=== PATIENT | female | born 2005 | race Caucasian/White ===

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

== ENCOUNTER 2024-02-10 13:40 | Emergency (ER) | payer BC, MEDICAID ==
--- NOTE | 2024-02-10 13:45 | ERPHSYRPT ---
- History of Present Illness Time Seen by Provider: 02/10/24 13:45 Historian: patient Exam Limitations: no limitations Physician History: The patient presented with a chief complaint of chest pain that started the previous day, making it difficult for them to breathe. This is not the first occurrence of such symptoms, with similar episodes happening every few weeks over the past few months. The most recent episode was severe enough to warrant an endoscopy due to the patient coughing up blood. The chest pain is primarily located in the central chest area and occasionally radiates throughout the chest. The patient rates the pain as a seven or eight on a scale of one to ten. The pain is exacerbated by heat and deep breathing, and it is somewhat alleviated when the patient remains stationary. In addition to the chest pain, the patient also experiences shortness of breath, which they attribute to the pain making it difficult to breathe. They also report a sensation of a fast heartbeat. The patient denies any daily medication use or significant medical issues. They also deny experiencing any headaches, dizziness, or abdominal pain. Timing/Duration: yesterday Activities at Onset: rest Quality: sharpness, stabbing Location: substernal Chest Pain Radiation: no radiation Severity of Pain-Max: severe Severity of Pain-Current: severe Modifying Factors: Improves With: rest. Worsens With: breathing, exertion, movement Associated Symptoms: shortness of breath, hurts to breathe, No nausea, No vomiting, No palpitations, No abdominal pain, No cough, No diaphoresis, No chills, No fever, No headache, No dizziness Prior Chest Pain/Cardiac Workup: non-cardiac Nitro Today/Relief: no nitro taken today Aspirin Treatment Today: no aspirin today Allergies/Adverse Reactions: Sulfa (Sulfonamide Antibiotics) Allergy (Mild, Verified 02/10/24 13:53) Hx Tetanus, Diphtheria Vaccination/Date Given: Yes Hx Influenza Vaccination/Date Given: No Hx Pneumococcal Vaccination/Date Given: No - Review of Systems All Other Systems: Reviewed and Negative - Past Medical History Pertinent Past Medical History: No Neurological History: No Pertinent History ENT History: No Pertinent History Cardiac History: No Pertinent History Respiratory History: No Pertinent History Endocrine Medical History: No Pertinent History Musculoskeletal History: No Pertinent History GI Medical History: No Pertinent History History: No Pertinent History Psycho-Social History: No Pertinent History Female Reproductive Disorders: No Pertinent History - Past Surgical History Past Surgical History: No Neuro Surgical History: No Pertinent History Cardiac: No Pertinent History Respiratory: No Pertinent History Gastrointestinal: No Pertinent History Genitourinary: No Pertinent History Musculoskeletal: No Pertinent History Female Surgical History: No Pertinent History - Female History Hx Last Menstrual Period: na - Social History Smoking Status: Never smoker Exposure to second hand smoke: No Drug Use: none Patient Lives Alone: No - Nursing Vital Signs Nursing Vital Signs: Initial Vital Signs Temperature 97.9 F 02/10/24 13:41 Pulse Rate 99 H 02/10/24 13:41 Respiratory Rate 14 02/10/24 13:41 Blood Pressure 116/85 02/10/24 13:41 O2 Sat by Pulse Oximetry 100 02/10/24 13:41 Pain Scale Pain Intensity 7 - Physical Exam General Appearance: no apparent distress, thin Eye Exam: eyes nml inspection Ears, Nose, Throat Exam: normal ENT inspection Neck Exam: normal inspection, supple, full range of motion Respiratory Exam: normal breath sounds, chest tenderness, lungs clear, airway intact, No respiratory distress Cardiovascular Exam: regular rate/rhythm, normal heart sounds, capillary refill <2 sec, No edema Gastrointestinal/Abdomen Exam: soft, No tenderness, No distention, No mass, No guarding, No rebound Extremity Exam: normal inspection, No swelling, No tenderness Neurologic Exam: alert, oriented x 3, cooperative Skin Exam: normal color, warm, dry SpO2 Interpretation: normal O2 Delivery: Room Air - Course Nursing assessment & vital signs reviewed: Yes EKG Interpreted by Me: RATE ([id number]), Sinus Rhythm, NORMAL AXIS, NORMAL INTERVALS, NORMAL QRS, NORMAL ST-T Ordered Tests: Active Orders 24 hr Category Date Time 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 02/10/24 13:44 Active EKG-ER Only STAT Care 02/10/24 13:43 Active IV Insertion STAT Care 02/10/24 13:43 Active Pulse Oximetry (ED) STAT Care 02/10/24 13:43 Active CHEST 1 VIEW (PORTABLE) Stat Exams 02/10/24 13:44 Taken CBC W DIFF Stat Lab 02/10/24 14:05 Completed CMP Stat Lab 02/10/24 14:05 Completed D-DIMER QUANTITATIVE Stat Lab 02/10/24 14:05 Completed HCG QUALITATIVE, SERUM Stat Lab 02/10/24 14:05 Completed PROTIME WITH INR Stat Lab 02/10/24 14:05 Completed PTT Stat Lab 02/10/24 14:05 Completed TROPONIN Q4H Lab 02/10/24 14:05 Completed TROPONIN Q4H Lab 02/10/24 17:45 Ordered TROPONIN Q4H Lab 02/10/24 21:45 Ordered TSH, 3RD Generation Stat Lab 02/10/24 14:05 Completed Urine Triage Profile Stat Lab 02/10/24 14:37 Completed Medication Summary Discontinued Medications Generic Name Dose Route Start Last Admin Trade Name Freq PRN Reason Stop Dose Admin Sodium Chloride 1,000 mls @ 999 mls/hr 02/10/24 13:43 02/10/24 14:03 Sodium Chloride 0.9% 1000 Ml IV 02/10/24 14:43 999 mls/hr .Q1H1M STA Administration Sodium Chloride Confirm 02/10/24 14:02 Sodium Chloride 0.9% 1000 Ml Administered 02/10/24 14:03 Dose 1,000 mls @ ud .ROUTE .STK-MED ONE Ondansetron HCl 4 mg 02/10/24 13:43 02/10/24 14:03 Ondansetron Hcl 4 Mg/2 Ml Vial IV 02/10/24 13:44 4 mg STAT ONE Administration Ondansetron HCl Confirm 02/10/24 14:02 Ondansetron Hcl 4 Mg/2 Ml Vial Administered 02/10/24 14:03 Dose 4 mg .ROUTE .STK-MED ONE Lab/Rad Data: Laboratory Result Diagrams 02/10/24 14:05 02/10/24 14:05 Laboratory Results 02/10/24 02/10/24 02/10/24 Range/Units 14:37 14:05 14:05 WBC (3.98-10.04) x10^3/uL RBC (3.93-5.22) x10^6/uL Hgb (11.2-15.7) g/dL Hct (34.1-44.9) % MCV (79.4-94.8) fL MCH (25.6-32.2) pg MCHC (32.2-35.5) g/dL RDW (11.7-14.4) % Plt Count (182-369) x10^3/uL MPV (9.4-12.3) fL Gran % (34.0-71.1) % Immature Gran % (Auto) (0.001-0.429) % Nucleat RBC Rel Count (0.00-0.2) % Eos # (Auto) (0.04-0.36) x10^3/uL Immature Gran # (Auto) (0.001-0.031) x10^3u/L Absolute Lymphs (auto) (1.18-3.74) x10^3/uL Absolute Monos (auto) (0.24-0.86) x10^3/uL Absolute Nucleated RBC (0.00-0.012) x10^3u/L Lymphocytes % (19.3-51.7) % Monocytes % (4.7-12.5) % Eosinophils % (0.7-5.8) % Basophils % (0.1-1.2) % Absolute Granulocytes (1.56-6.13) x10^3/uL Basophils # (0.01-0.08) x10^3/uL PT (9.4-12.5) SECONDS INR (0.8-3.0) APTT (25.1-36.5) SECONDS D-Dimer (0.0-0.50) mg/L Sodium (135-145) mmol/L Potassium (3.5-5.1) mmol/L Chloride (98-107) mmol/L Carbon Dioxide (22-30) mmol/L Anion Gap (5-15) MEQ/L BUN (7-17) mg/dL Creatinine (0.52-1.04) mg/dL Estimated GFR ML/MIN Glucose (74-106) mg/dL Calcium (8.4-10.2) mg/dL Total Bilirubin (0.2-1.3) mg/dL AST (14-36) U/L ALT (0-35) U/L Alkaline Phosphatase (38-126) U/L Troponin I < 0.012 (0.000-0.033) ng/mL Serum Total Protein (6.3-8.2) g/dL Albumin (3.5-5.0) g/dL TSH 3rd Generation (0.470-4.680) mIU/L Serum HCG, Qual NEGATIVE (NEGATIVE) Urine Opiates Level NEGATIVE (NEGATIVE) Ur Methadone NEGATIVE (NEGATIVE) Urine Barbiturates NEGATIVE (NEGATIVE) Ur Phencyclidine (PCP) NEGATIVE (NEGATIVE) Urine Amphetamine NEGATIVE (NEGATIVE) U Benzodiazepine Level NEGATIVE (NEGATIVE) Urine Cocaine NEGATIVE (NEGATIVE) Urine Marijuana (THC) NEGATIVE (NEGATIVE) 02/10/24 02/10/24 02/10/24 Range/Units 14:05 14:05 14:05 WBC 5.6 (3.98-10.04) x10^3/uL RBC 4.95 (3.93-5.22) x10^6/uL Hgb 13.7 (11.2-15.7) g/dL Hct 41.9 (34.1-44.9) % MCV 84.6 (79.4-94.8) fL MCH 27.7 (25.6-32.2) pg MCHC 32.7 (32.2-35.5) g/dL RDW 13.8 (11.7-14.4) % Plt Count 229 (182-369) x10^3/uL MPV 10.0 (9.4-12.3) fL Gran % 67.6 (34.0-71.1) % Immature Gran % (Auto) 0.2 (0.001-0.429) % Nucleat RBC Rel Count 0.0 (0.00-0.2) % Eos # (Auto) 0.07 (0.04-0.36) x10^3/uL Immature Gran # (Auto) 0.01 (0.001-0.031) x10^3u/L Absolute Lymphs (auto) 1.39 (1.18-3.74) x10^3/uL Absolute Monos (auto) 0.34 (0.24-0.86) x10^3/uL Absolute Nucleated RBC 0.00 (0.00-0.012) x10^3u/L Lymphocytes % 24.6 (19.3-51.7) % Monocytes % 6.0 (4.7-12.5) % Eosinophils % 1.2 (0.7-5.8) % Basophils % 0.4 (0.1-1.2) % Absolute Granulocytes 3.81 (1.56-6.13) x10^3/uL Basophils # 0.02 (0.01-0.08) x10^3/uL PT 11.4 (9.4-12.5) SECONDS INR 1.05 (0.8-3.0) APTT 31.9 (25.1-36.5) SECONDS D-Dimer < 0.19 (0.0-0.50) mg/L Sodium 140 (135-145) mmol/L Potassium 3.5 (3.5-5.1) mmol/L Chloride 102 (98-107) mmol/L Carbon Dioxide 26 (22-30) mmol/L Anion Gap 14.3 (5-15) MEQ/L BUN 11 (7-17) mg/dL Creatinine 0.92 (0.52-1.04) mg/dL Estimated GFR 92.0 ML/MIN Glucose 144 H (74-106) mg/dL Calcium 9.5 (8.4-10.2) mg/dL Total Bilirubin 0.60 (0.2-1.3) mg/dL AST 25 (14-36) U/L ALT 21 (0-35) U/L Alkaline Phosphatase 62 (38-126) U/L Troponin I (0.000-0.033) ng/mL Serum Total Protein 8.1 (6.3-8.2) g/dL Albumin 4.7 (3.5-5.0) g/dL TSH 3rd Generation 1.182 (0.470-4.680) mIU/L Serum HCG, Qual (NEGATIVE) Urine Opiates Level (NEGATIVE) Ur Methadone (NEGATIVE) Urine Barbiturates (NEGATIVE) Ur Phencyclidine (PCP) (NEGATIVE) Urine Amphetamine (NEGATIVE) U Benzodiazepine Level (NEGATIVE) Urine Cocaine (NEGATIVE) Urine Marijuana (THC) (NEGATIVE) - Progress Progress: improved Air Movement: good Progress Note: Laboratory evaluation unremarkable. Cardiac evaluation negative, TSH within normal limits. Chest x-ray unremarkable. No clear etiology of her chest pain found today. Advise follow-up with Dr. Lopez her patient intake coordinator to make sure all pulmonary causes are ruled out. There could be an underlying component of anxiety so I will discharge with as needed hydroxyzine to see if this helps. Blood Culture(s) Obtained: No Antibiotics given: No Counseled pt/family regarding: lab results, diagnosis, need for follow-up, rad results Medical Desision Making - Diagnostic Testing Diagnostic test were ordered, analyzed, and reviewed by me: Yes Radiological Interpretation: Interpreted by me, Reviewed by me, Teleradiologist Report - Risk of complications The pt has a mod risk of morbidity or mortality based on: Need for prescription drug management - Departure Departure Disposition: Home Clinical Impression: Chest pain Condition: Good Critical Care Time: No Referrals: PATRICK LAN NP, RN [Primary Care Provider] - Follow up/PCP as directed Instructions: Chest Pain (DC) Prescriptions: hydrOXYzine pamoate [Vistaril] 25 mg PO TID PRN 5 Days #15 cap PRN Reason: Anxiety
[2024-02-10 13:51] VITALS: TEMP 97.9; O2SAT 100
[2024-02-10] MEDS ORDERED: Zofran 4 MG/2 ML VIAL ONE (14:02)
[2024-02-10] MEDS ORDERED: Sodium Chloride 0.9% 1000 ML 1,000 ML ONE (14:02)
[2024-02-10] MEDS: Sodium Chloride 0.9% 1000 ML 1,000 ML IV STA (14:03)
[2024-02-10] MEDS: Zofran 4 MG/2 ML VIAL IV ONE (14:03)
[2024-02-10 14:11] LABS: Absolute Neutrophil Ct (ANC) 3.81 x10^3/uL (1.56-6.13); BASOPHIL % 0.4 % (0.1-1.2); Basophil (Absolute #) 0.02 x10^3/uL (0.01-0.08); Eosinophil % 1.2 % (0.7-5.8); Eosinophil (Absolute #) 0.07 x10^3/uL (0.04-0.36); Hematocrit 41.9 % (34.1-44.9); Hemoglobin 13.7 g/dL (11.2-15.7); IMMATURE GRAN # 0.01 x10^3u/L (0.001-0.031); IMMATURE GRAN % 0.2 % (0.001-0.429); Lymphocyte (Absolute #) 1.39 x10^3/uL (1.18-3.74); Lymphocytes % 24.6 % (19.3-51.7); Mean Cell Volume 84.6 fL (79.4-94.8); Mean Corpuscular Hemoglobin 27.7 pg (25.6-32.2); Mean Corpuscular Hgb Concent. 32.7 g/dL (32.2-35.5); Monocyte (Absolute #) 0.34 x10^3/uL (0.24-0.86); Neutrophil % 67.6 % (34.0-71.1); Platelet Count 229 x10^3/uL (182-369); Red Blood Count 4.95 x10^6/uL (3.93-5.22); Red Cell Distribution Width 13.8 % (11.7-14.4); White Blood Count 5.6 x10^3/uL (3.98-10.04)
[2024-02-10 14:27] LABS: HCG SERUM TEST NEGATIVE (NEGATIVE)
[2024-02-10 14:30] LABS: D-DIMER QUANTITATIVE < 0.19 mg/L (0.0-0.50); INR 1.05 (0.8-3.0); PROTIME 11.4 SECONDS (9.4-12.5); PTT 31.9 SECONDS (25.1-36.5)
[2024-02-10 14:57] LABS: ALBUMIN 4.7 g/dL (3.5-5.0); ANION GAP 14.3 MEQ/L (5-15); BILIRUBIN,TOTAL 0.6 mg/dL (0.2-1.3); Calcium 9.5 mg/dL (8.4-10.2); Creatinine 1 0.92 mg/dL (0.52-1.04); Potassium 3.5 mmol/L (3.5-5.1); TSH, 3RD Generation 1.182 mIU/L (0.470-4.680); Total Protein 8.1 g/dL (6.3-8.2)
[2024-02-10 15:11] LABS: Amphetamine,Urine NEGATIVE (NEGATIVE); Barbiturate,Urine NEGATIVE (NEGATIVE); Benzodiazepine,Urine NEGATIVE (NEGATIVE); Cocaine,Urine NEGATIVE (NEGATIVE); Methadone,Urine NEGATIVE (NEGATIVE); Opiate,Urine NEGATIVE (NEGATIVE); PCP,Urine NEGATIVE (NEGATIVE); THC,Urine NEGATIVE (NEGATIVE)
[2024-02-10 15:44] VITALS: BP 107/66; PULSE 95; RESP 20
--- NOTE | 2024-02-10 20:05 | XRAY ---
Indication: Chest pain. Comparison: September 05, 2021 Portable chest remains hyperinflated and clear. Heart not enlarged. Bony thorax intact again with mild double curvature scoliosis. No new/acute findings.
== END 2024-02-10 15:49 | disposition home or self-care (01) ==
LOC: ED 13:40
DX: R07.9 Chest pain, unspecified (principal); R06.02 Shortness of breath
CPT/HCPCS: 36000; 36415; 71045; 80053; 80307; 84443; 84484; 84703; 85025; 85379; 85610; 85730; 93005; 93041; 94760; 96360; 96374; 99284; J2405